=== PATIENT | female | born 1955 | race Two or more races ===

== ENCOUNTER 2022-08-06 06:17 | Day surgery (SDC) | payer OTHER, MEDICAID ==
[2022-08-04 13:05] LABS: Basophils # (auto) 0 10 ^3/uL (0-0.2); Basophils % (auto) 0.7 % (0.0-2.0); Eosinophils # (auto) 0.1 10 ^3/uL (0-0.8); Eosinophils % (auto) 1.4 % (0.0-7.0); Hematocrit 39.2 % (36.0-46.0); Hemoglobin 12.8 g/dL (12.2-16.2); Lymphocytes # (auto) 2.7 10 ^3/uL (0.4-5.4); Lymphocytes % (auto) 43.5 % (10.0-50.0); Mean Corpuscular Hemoglobin 29.8 pg (28.0-32.0); Mean Corpuscular Hgb Conc. 32.6 g/dL (32.0-36.0); Mean Corpuscular Volume 91.5 fL (80.0-100.0); Monocytes # (auto) 0.6 10 ^3/uL (0-1.3); Monocytes % (auto) 9.1 % (0.0-12.0); Neutrophils # (auto) 2.8 10 ^3/uL (1.6-8.6); Neutrophils % (auto) 45.3 % (37.0-80.0); Red Blood Cells 4.29 10^6/uL (4.0-5.20); Red Cell Distribution Width 12.8 % (11.8-14.3); White Blood Cell 6.1 10^3/uL (4.4-10.8)
[2022-08-04 13:22] LABS: Urine Bacteria NONE SEEN /hpf (None Seen); Urine Blood Negative /uL (Negative); Urine Specific Gravity 1.012 (1.001-1.035); Urine WBC <1 /hpf (0 - 5)
[2022-08-04 13:39] LABS: INR 0.95 (0.9-1.15); Partial Thromboplastin Time 25.4 sec (24.6-33.4)
[2022-08-04 13:43] LABS: Albumin 3.6 g/dL (3.4-5.0); Calcium 8.6 mg/dL (8.5-10.1); Potassium 4.3 mmol/L (3.5-5.1)
[2022-08-04 13:47] LABS: Bilirubin, Total 0.4 mg/dL (0.2-1.0); Total Protein 7.1 g/dL (6.4-8.2)
[~2022-08-06] VITALS: Ht 154.9 cm; Wt 85.7 kg
[~2022-08-06 06:17] MED LIST: CAPT50TA5 PO; HYDR-4072 PO; LEV100T PO; PREG50CA PO
[2022-08-06] MEDS ORDERED: LIDOCAINE 1%HCL (LOCAL ANESTH) 10 ML MDV ONE (06:53)
[2022-08-06] MEDS ORDERED: BUPIVACAINE HCL 0.25% P/F 10 ML VIAL ONE (06:54)
[2022-08-06] MEDS ORDERED: SUCCINYLCHOLINE CHLORIDE 20 MG/ML 10ML VIAL IV ONE (06:56)
[2022-08-06] MEDS ORDERED: ONDANSETRON HCL 4 MG/2 ML VIAL ONE (06:58)
[2022-08-06] MEDS ORDERED: DexAMETHasone SOD PHOS 10MG/1ML VIAL INJ ONE (06:58)
[2022-08-06] MEDS ORDERED: MIDAZOLAM HCL 2MG/2ML 2ml VIAL (1mg/ml) ONE (06:58)
[2022-08-06] MEDS ORDERED: SODIUM CHLORIDE LOCK 10 ML ONE (06:58)
[2022-08-06] MEDS ORDERED: fentaNYL CITRATE 100 MCG/2 ML VL ONE (06:58)
[2022-08-06] MEDS ORDERED: PROPOFOL 10 MG/ML 20 ML IV ONE (06:58)
[2022-08-06] MEDS ORDERED: fentaNYL CITRATE 100 MCG/2 ML VL IV PRN (07:15)
[2022-08-06] MEDS ORDERED: METOCLOPRAMIDE HCL 5MG/ml INJ 2ml VIAL IV PRN (07:15)
[2022-08-06] MEDS ORDERED: HYDROmorphone HCL 2 MG/ML VL/or syr IV PRN ×2 (07:15)
[2022-08-06] MEDS ORDERED: MORPHINE SULFATE 4 MG/ML SYR/VIAL IV PRN (07:15)
[2022-08-06] MEDS ORDERED: CLINDAMYCIN 600MG IV 50 ML IV ONE (07:34)
[2022-08-06] MEDS ORDERED: HYDR-4902 PO (08:26)
[2022-08-06] MEDS ORDERED: CLIN300C8 PO (08:26)
[2022-08-06 09:20] VITALS: BP 139/83
== END 2022-08-06 10:45 | disposition home or self-care (01) ==
LOC: SUR 06:17
PROVIDERS: ATTEND Student in an Organized Health Care Education/Training Program
DX: M72.2 Plantar fascial fibromatosis (principal); I10 Essential (primary) hypertension; E03.9 Hypothyroidism, unspecified; G89.29 Other chronic pain; E11.42 Type 2 diabetes mellitus with diabetic polyneuropathy; E66.9 Obesity, unspecified; Z96.653 Presence of artificial knee joint, bilateral; Z98.890 Other specified postprocedural states; Z79.899 Other long term (current) drug therapy; Z90.49 Acquired absence of other specified parts of digestive tract; Z20.822 Contact with and (suspected) exposure to COVID-19; Z68.38 Body mass index [BMI] 38.0-38.9, adult
CPT/HCPCS: 28008; 36415; 80053; 81001; 85025; 85610; 85730; J0330; J1100; J1170; J2001; J2250; J2405; J2704; J3010; J3490; U0003